=== PATIENT | female | born 1980 | race Caucasian/White ===

== ENCOUNTER 2017-10-23 21:01 | Emergency (ER) | payer OTHER ==
[~2017-10-23] VITALS: Ht 157.5 cm; Wt 59.0 kg
[~2017-10-23 21:01] MED LIST: ACCUNEB0.63 MG/3 IH; ACETAMINOPHEN-1 EAC1 PO; ATIVAN1 MG PO; BACTRIM; DEXACIDIN EYE DR5 ML OP; DOXYCYCLINE 10100 MG PO; HYDROCODONE-AP1 EAC6 PO; HYDROCODONE-APA1 TA1 PO; IBUPROFEN 600600 M1 PO; IBUPROFEN 800800 M1 PO; IBUPROFEN 800800 MG PO; KLONOPIN0.5 MG PO; MEDROLDOSEPACK PO; NAPROSYN500 MG PO; NAPROXEN 500MG500 MG PO; NORCO 5-325 TA1 EACH PO; PEPCID20 MG PO; PREDNISONE50 MG PO; PRENA1 SOFTGEL1 EACH; PRILOSEC20 MG PO; PROAIR HFA8.5 GM IH; PROAIR HFA8.5 GM INH; PROZAC10 MG PO; PROZAC20 MG; TRAMADOL 50 MG50 MG; TRAMADOL 50 MG50 MG PO; ULTRAM 50MG TAB50 MG PO; VENTOLIN HFA 1818 GM INH; VICODIN 5-5001 EACH PO; VISTARIL 25 MG25 M1 PO; ZOFRAN ODT4 MG PO; ZPAK PO
[2017-10-23 21:27] VITALS: BP 130/82
== END 2017-10-23 21:28 | disposition home or self-care (01) ==
LOC: M.ERS 21:01
DX: J11.1 Influenza due to unidentified influenza virus with other respiratory manifestations (principal); R05 Cough; R52 Pain, unspecified; M47.9 Spondylosis, unspecified; F32.9 Major depressive disorder, single episode, unspecified; Z98.51 Tubal ligation status; Z88.2 Allergy status to sulfonamides; Z88.5 Allergy status to narcotic agent; Z88.8 Allergy status to other drugs, medicaments and biological substances

== ENCOUNTER 2017-10-26 22:45 | Emergency (ER) | payer OTHER ==
[~2017-10-26] VITALS: Ht 157.5 cm; Wt 63.5 kg
[2017-10-26 23:13] LABS: ABSOLUTE BASOPHILS 0.1 thou/uL (0.0-0.2); ABSOLUTE EOSINOPHILS 0.3 thou/uL (0.0-0.7); ABSOLUTE LYMPHOCYTES 1.9 thou/uL (0.8-5.3); ABSOLUTE MONOCYTES 0.6 thou/uL (0.0-1.2); ABSOLUTE NEUTROPHILS 3.2 thou/uL (1.6-8.1); EOSINOPHILS 4.6 %; HEMATOCRIT 41.8 % (37.0-47.0); HEMOGLOBIN 13.9 gm/dL (12.0-15.0); LYMPHOCYTES 31.1 %; MCH 30.2 pg (26.0-34.0); MCHC 33.2 g/dL (28.0-37.0); MCV 90.9 fL (80.0-100.0); MONOCYTES 9.5 %; MPV 8.9 fl. (7.2-11.1); NUCLEATED RBCS 0 /100WBC; PLATELET COUNT* 299 thou/uL (150-400); POLYS 53.8 %; RDW-CV 12.9 % (10.5-14.5)
[2017-10-26 23:28] LABS: ANION GAP 5 mmol/L (7-16); BUN 7 mg/dL (7-18); CALCIUM 8.6 mg/dL (8.5-10.1); CHLORIDE 103 mmol/L (98-107); CO2 29 mmol/L (21-32); CREATININE 0.9 mg/dL (0.6-1.3); GLUCOSE 99 mg/dL (70-99); POTASSIUM 3.6 mmol/L (3.5-5.1); SODIUM 137 mmol/L (136-145)
[2017-10-26 23:39] LABS: ALBUMIN 3.6 g/dL (3.4-5.0); ALKALINE PHOSPHATASE 74 U/L (46-116); LIPASE 123 U/L (73-393); MAGNESIUM 1.8 mg/dL (1.8-2.4); NT-PRO BRAIN NAT PEPTIDE 63 pg/mL (<300); SGOT 20 U/L (15-37); SGPT 29 U/L (30-65); TOTAL BILIRUBIN 0.3 mg/dL (<0.1-1.0); TOTAL PROTEIN 7.2 g/dL (6.4-8.2); TROPONIN-I LEVEL <0.06 ng/mL (<0.06)
[2017-10-27] MEDS ORDERED: ZOFRAN ODT4 MG PO (00:24)
[2017-10-27 00:48] VITALS: BP 107/83
--- NOTE | 2017-10-27 13:24 | EKG ---
[place] [address] ELECTROCARDIOGRAM REPORT Name: KRYSTA SIMPSON Room: [facility]#: [id number] Admission: 10/26/17 Attend Phys: Discharge: 10/27/17 Date of : 80 Report #: [id number] THIS REPORT FOR: //name// [facility] ED Test Date: 2017-10-26 Test Time: 23:01:41 Pat Name: KRYSTA SIMPSON Department: Room: Gender: F Shake Splitter: IMTIAZ : 1980 Requested By: Golden Davis Order Number: [id number] MD: Will Jordan Measurements Intervals [place] Rate: 72 P: 53 MN: 117 QRS: 53 QRSD: 90 T: 44 QT: 385 QTc: 422 Interpretive Statements Sinus rhythm Borderline short [place] interval Compared to ECG 07/01/2017 16:41:38 Ventricular premature complex(es) no longer present Electronically Signed On 10-27-2017 13:24:08 GUIDEMAN by Will Jordan [email or web address] <ELECTRONICALLY SIGNED> By: Will Jordan MD, [facility] 10/27/17 1324 00 00 Will Jordan MD, FACC /EPI
== END 2017-10-27 00:50 | disposition home or self-care (01) ==
LOC: M.ERS 22:45
PROVIDERS: Emergency Medicine Emergency Medical Services
DX: J11.1 Influenza due to unidentified influenza virus with other respiratory manifestations (principal); R09.1 Pleurisy; F32.9 Major depressive disorder, single episode, unspecified; Z87.440 Personal history of urinary (tract) infections; Z88.5 Allergy status to narcotic agent; Z88.2 Allergy status to sulfonamides; Z88.8 Allergy status to other drugs, medicaments and biological substances

== ENCOUNTER 2018-09-15 16:01 | Inpatient (IN) | payer OTHER ==
[~2018-09-15] VITALS: Ht 157.5 cm; Wt 61.2 kg
[2018-09-15 16:17] VITALS: BP 119/80
[2018-09-15] MEDS ORDERED: LISINOPRIL10 MG PO (16:22)
[2018-09-15 16:30] LABS: URINE BILIRUBIN NEGATIVE (Negative); URINE BLOOD NEGATIVE (Negative); URINE CLARITY CLEAR; URINE COLOR YELLOW; URINE GLUCOSE-RANDOM NEGATIVE (Negative); URINE KETONES NEGATIVE (Negative); URINE LEUKOCYTES-REFLEX 1+ (Negative); URINE NITRITE-REFLEX NEGATIVE (Negative); URINE PROTEIN NEGATIVE (Negative); URINE UROBILINOGEN 0.2 E.U./dl (0.2-1.0)
[2018-09-15 16:35] LABS: ABSOLUTE EOSINOPHILS 0.1 thou/uL (0.0-0.7); ABSOLUTE MONOCYTES 0.4 thou/uL (0.0-1.2); ABSOLUTE NEUTROPHILS 4.9 thou/uL (1.6-8.1); BASOPHILS 0.4 %; EOSINOPHILS 0.8 %; HEMATOCRIT 40.6 % (37.0-47.0); MCH 32.1 pg (26.0-34.0); MCHC 34.4 g/dL (28.0-37.0); MCV 93.2 fL (80.0-100.0); MONOCYTES 5.8 %; MPV 9.2 fl. (7.2-11.1); NUCLEATED RBCS 0 /100WBC; PLATELET COUNT* 355 thou/uL (150-400); RBC 4.35 mil/uL (4.20-5.00); RDW-CV 12.8 % (10.5-14.5); WBC 7.5 thou/uL (4.0-11.0)
[2018-09-15 16:37] LABS: SQUAMOUS >10 Many /LPF (0-3); URINE RBC 0-2 Rare /HPF (0-2); URINE WBC-REFLEX 6-15 Few /HPF (0-5)
[2018-09-15 16:38] LABS: CRYSTALS None Seen /LPF (None Seen); HYALINE CASTS 0-3 Few /LPF (None Seen); MUCUS >6 Heavy strn/LPF (None Seen)
[2018-09-15 16:43] LABS: CALCIUM 8.6 mg/dL (8.5-10.1); POTASSIUM 3.4 mmol/L (3.5-5.1)
[2018-09-15 16:48] LABS: ALBUMIN 3.7 g/dL (3.4-5.0); TOTAL BILIRUBIN 0.9 mg/dL (<0.1-1.0); TOTAL PROTEIN 6.9 g/dL (6.4-8.2)
[2018-09-15] MEDS ORDERED: CLONAZEPAM 1 MG1 M1 PO (21:45)
[2018-09-15 21:54] VITALS: BP 121/75
[2018-09-15 21:55] VITALS: BP 118/78
[2018-09-16 08:00] VITALS: BP 111/69
[2018-09-16 12:37] VITALS: BP 111/69
[2018-09-16 18:35] VITALS: BP 103/52
--- NOTE | 2018-09-16 18:51 | NUR ---
PATIENT NPO ALL MORNING FOR PROCEDURE THIS AFTERNOON WITH UROLOGY. PATIENT HAD STONE REMOVED AND STENT PLACED. IVF REMAIN INFUSING. REG DIET, PATIENT STATED HER DAUGHTER WAS BRINGING HER FOOD. PATIENT STATED SHE WAS SORE BUT FELT MUCH BETTER AFTER PROCEDURE. PATIENT VITALS STABLE. OK TO DISCHARGE IN AM PER UROLOGY IF REMAINS AFEBRILE.
[2018-09-16 19:30] VITALS: BP 101/68
--- NOTE | 2018-09-16 22:16 | NUR ---
INITAL ASSESMENT COMPLETED AT 1930. PT RESTING IN BED WITH FAMILY AT BEDSIDE. PT REPORTED UNRELIEVED NAUSEA. CALLED DR BETHEA AND RECIEVED ORDERS. PT GIVEN IV COMPAINE WITH GOOD RESULTS. PT GIVEN PRN NORCO AND TORADOL WITH HS MEDS. PT RESTING QUIETLY IN BED AT THIS TIME. CALL LIGHT IN REACH. PT USING APPROPRIATELY.
[2018-09-17 00:30] VITALS: BP 95/50
--- NOTE | 2018-09-17 06:18 | NUR ---
PT VOIDING CLOUDY BLOOD TINGED URINE AFTER CYSTOSCOPY YESTERDAY. NO STONES STRAINED FROM URINE. PT RECIEVED IV DILAUDED AND TORADOL DURING SHIFT. PT TAKING PO ULTRAM AND NORCO FOR PAIN CONTROL. VITAL SIGNS WITHIN NORMAL LIMITS. WILL CONTINUE TO MONITOR.
[2018-09-17 08:45] VITALS: BP 106/67
[2018-09-17] MEDS ORDERED: FLOMAX0.4 MG PO (09:38)
[2018-09-17 09:39] VITALS: BP 106/67
[2018-09-17] MEDS ORDERED: CIPRO500 M1 PO (09:39)
[2018-09-17] MEDS ORDERED: HYDROCODONE-AP1 EAC6 PO (10:29)
[2018-09-17] MEDS ORDERED: ONDANSETRON HCL4 M2 PO (10:29)
--- NOTE | 2018-09-17 11:19 | NUR ---
NO COMPLAINTS OF PAIN OR NAUSEA THIS AM. TOLERATING REG DIET. IV SL, DC'D THIS AM. PATIENT STARTED ON PO ABX BY UROLOGY AND OK TO DISCHARGE. DR. BETHEA NOTIFIED AND ORDERS FOR DISCHARGE. VERBALIZES UNDERSTANDING OF PAPERWORK AND SCRIPTS. PATIENT AMBULATED OUT WITH STAFF AND ALL BELONGINGS.
--- NOTE | 2018-09-17 16:48 | OP ---
[address] [address] OPERATIVE REPORT Name: MAMIDELGADOKRYSTA WEISS Room: [address]#: [id number] Admission: 09/15/18 Attend Phys: Cindy Purvis MD Discharge: 09/17/18 Date of : [birth year] Report #: [id number] THIS REPORT FOR: //name// CC: JERRI physician/PCP Cindy Purvis DATE OF SERVICE: 09/16/2018 INDICATIONS FOR PROCEDURE: The patient is a 37-year-old female who was admitted through the Emergency Department due to right-sided flank pain associated with nausea and vomiting. She was initially treated for urinary tract infection, but second evaluation through the Emergency Department revealed a 4 mm right distal ureteral calculus. After discussing treatment options including all risks and benefits, she presents for a cystoscopy with right retrograde pyelogram, possible ureteroscopic stone extraction versus possible stent. PREOPERATIVE DIAGNOSIS: Right ureteral calculus. POSTOPERATIVE DIAGNOSIS: Right ureteral calculus. PROCEDURE: Cystoscopy, right retrograde pyelogram, right ureteroscopic stone extraction, right stent placement. SURGEON: Gee Jackson MD ANESTHESIA: General. COMPLICATIONS: None. ESTIMATED BLOOD LOSS: None. PROCEDURE IN DETAIL: The patient was consented for the above procedure. She was given broad spectrum IV antibiotics preoperatively. She was given general anesthetic, placed in dorsal lithotomy position. She had been given IV antibiotics earlier in the day. She was prepped and draped in the usual sterile fashion over the genitalia. Cystoscopy was performed with a 21-Tunisian sheath and 30 degree lens, which revealed normal urethra. No evidence of stones, ulcerations or tumors were noted within the bladder itself. The ureteral orifices were not inflamed and they were fairly patulous. A retrograde pyelogram was performed with a 5-Tunisian Pollack catheter and half-strength Omnipaque, which revealed a filling defect approximately 2 cm above the right ureteral orifice with minimal hydronephrosis above this. No purulence was noted after performing the retrograde pyelogram. Based on the size of the ureteral orifice and the size of the stone, I elected to go ahead with ureteroscopy and stone removal. This was performed by initially placing a 0.035 floppy-tipped guidewire alongside the stone up into the right renal [place] [address] OPERATIVE REPORT Name: KRYSTA SIMPSON Room: [address]#: [id number] Admission: 09/15/18 Attend Phys: Cindy Purvis MD Discharge: 09/17/18 Date of : [birth year] Report #: [id number] was then removed and the semirigid ureteroscope was used to perform ureteroscopy alongside the wire without difficulty. This was a long oblong shaped stone, but I felt like it was small enough that it could be removed ureteroscopically, so a 0 tip nitinol stone basket was used to basket the stone and it was removed from the ureter without event. Next, a 4.8 x 26 double-J stent was passed over the wire with good curl noted in the renal pelvis and in the bladder after removing the wire. This was confirmed with fluoroscopy and cystoscopy. The bladder was drained. The scope was removed. A Uro-Jet was placed per urethra for local anesthesia. She was awakened and sent to recovery room where she remained in stable condition. We will have her finish a course of antibiotics and have her stent removal in the office in 1 week. <ELECTRONICALLY SIGNED> By: Gee Jackson MD 09/17/18 1648 1721 [id number] Jackson MD /nt
[2018-09-18] MEDS ORDERED: ZOFRAN ODT4 MG SUBLING (00:15)
[2018-09-18] MEDS ORDERED: PERCOCET 5-3251 EACH PO (00:15)
[2018-09-19 09:13] LABS: STONE CA OXALATE DIHYDRATE 20 % (()); STONE CA OXALATE MONOHYDRATE 40 % (()); STONE CALCIUM PHOSPHATE 40 % (()); STONE COLOR Brown (()); STONE SIZE 6x3x3 mm (())
== END 2018-09-17 11:24 | disposition home or self-care (01) | DRG 660 ==
LOC: M.ERS 16:01 → M.TBA-ER 19:00 → M.3W 19:00
PROVIDERS: Nurse Practitioner Family; ADMIT Internal Medicine
PROC: BT1D1ZZ Fluoroscopy of Right Kidney, Ureter and Bladder using Low Osmolar Contrast (ICD-10-PCS; principal; 2018-09-16)
PROC: 0T768DZ Dilation of Right Ureter with Intraluminal Device, Via Natural or Artificial Opening Endoscopic (ICD-10-PCS; principal; 2018-09-16)
PROC: 0TC68ZZ Extirpation of Matter from Right Ureter, Via Natural or Artificial Opening Endoscopic (ICD-10-PCS; principal; 2018-09-16)
DX: N13.6 Pyonephrosis (principal); Q61.5 Medullary cystic kidney; B96.20 Unspecified Escherichia coli [E. coli] as the cause of diseases classified elsewhere; E83.59 Other disorders of calcium metabolism; N29 Other disorders of kidney and ureter in diseases classified elsewhere; F41.9 Anxiety disorder, unspecified; M19.90 Unspecified osteoarthritis, unspecified site; F32.9 Major depressive disorder, single episode, unspecified; Z87.891 Personal history of nicotine dependence; Z90.49 Acquired absence of other specified parts of digestive tract; Z79.899 Other long term (current) drug therapy; Z88.2 Allergy status to sulfonamides; Z88.5 Allergy status to narcotic agent; Z88.8 Allergy status to other drugs, medicaments and biological substances

== ENCOUNTER 2018-09-17 23:29 | Emergency (ER) | payer OTHER ==
[~2018-09-17] VITALS: Ht 157.5 cm; Wt 59.0 kg
[~2018-09-17 23:29] MED LIST changes: +CIPRO500 M1 PO; +CLONAZEPAM 1 MG1 M1 PO; +FLOMAX0.4 MG PO; +LISINOPRIL10 MG PO; +ONDANSETRON HCL4 M2 PO
[2018-09-18] MEDS ORDERED: ZOFRAN ODT4 MG SUBLING (00:15)
[2018-09-18] MEDS ORDERED: PERCOCET 5-3251 EACH PO (00:15)
[2018-09-18 00:22] VITALS: BP 116/78
== END 2018-09-18 00:22 | disposition home or self-care (01) ==
LOC: M.ERS 23:29
DX: G89.18 Other acute postprocedural pain (principal); R10.30 Lower abdominal pain, unspecified; F32.9 Major depressive disorder, single episode, unspecified; Z88.2 Allergy status to sulfonamides; Z88.6 Allergy status to analgesic agent; Z88.8 Allergy status to other drugs, medicaments and biological substances; Z90.49 Acquired absence of other specified parts of digestive tract; Z98.890 Other specified postprocedural states; Z87.440 Personal history of urinary (tract) infections

== ENCOUNTER → 2018-12-06 | Outpatient (CLI) | payer OTHER ==
[~2018-12-06] MED LIST changes: +PERCOCET 5-3251 EACH PO; +ZOFRAN ODT4 MG SUBLING
== END ==
LOC: M.CT 12-04 16:00 → M.MRI 13:30 → M.CT 15:00
DX: N20.0 Calculus of kidney (principal); M51.16 Intervertebral disc disorders with radiculopathy, lumbar region; M51.34 Other intervertebral disc degeneration, thoracic region; I70.0 Atherosclerosis of aorta

== ENCOUNTER 2018-12-21 16:17 | Emergency (ER) | payer OTHER ==
[~2018-12-21] VITALS: Ht 157.5 cm; Wt 57.1 kg
[2018-12-21 17:46] LABS: ABSOLUTE EOSINOPHILS 0.1 thou/uL (0.0-0.7); ABSOLUTE LYMPHOCYTES 1.7 thou/uL (0.8-5.3); ABSOLUTE MONOCYTES 0.5 thou/uL (0.0-1.2); BASOPHILS 0.3 %; EOSINOPHILS 0.5 %; HEMATOCRIT 40.7 % (37.0-47.0); HEMOGLOBIN 13.9 gm/dL (12.0-15.0); LYMPHOCYTES 16.6 %; MCH 31.7 pg (26.0-34.0); MCHC 34.2 g/dL (28.0-37.0); MCV 92.7 fL (80.0-100.0); MONOCYTES 4.7 %; MPV 8.7 fl. (7.2-11.1); NUCLEATED RBCS 0 /100WBC; PLATELET COUNT* 382 thou/uL (150-400); POLYS 77.9 %; RBC 4.39 mil/uL (4.20-5.00); RDW-CV 12.7 % (10.5-14.5); WBC 10.2 thou/uL (4.0-11.0)
[2018-12-21 18:07] LABS: ALBUMIN 3.8 g/dL (3.4-5.0); CALCIUM 8.8 mg/dL (8.5-10.1); CREATININE 0.8 mg/dL (0.6-1.3); POTASSIUM 3.1 mmol/L (3.5-5.1); TOTAL BILIRUBIN 0.5 mg/dL (<0.1-1.0); TOTAL PROTEIN 7.1 g/dL (6.4-8.2)
[2018-12-21 18:14] LABS: URINE BILIRUBIN NEGATIVE (Negative); URINE BLOOD NEGATIVE (Negative); URINE CLARITY CLEAR; URINE COLOR YELLOW; URINE GLUCOSE-RANDOM NEGATIVE (Negative); URINE KETONES NEGATIVE (Negative); URINE LEUKOCYTES NEGATIVE (Negative); URINE NITRITE NEGATIVE (Negative); URINE PROTEIN NEGATIVE (Negative); URINE SPECIFIC GRAVITY 1.015 (1.005-1.030); URINE UROBILINOGEN 0.2 E.U./dl (0.2-1.0)
[2018-12-21 19:10] VITALS: BP 120/76
== END 2018-12-21 19:10 | disposition home or self-care (01) ==
LOC: M.ERS 16:17
PROVIDERS: Nurse Practitioner Family
DX: O26.891 Other specified pregnancy related conditions, first trimester (principal); R10.32 Left lower quadrant pain; Z88.5 Allergy status to narcotic agent; Z88.2 Allergy status to sulfonamides; Z88.8 Allergy status to other drugs, medicaments and biological substances; F32.9 Major depressive disorder, single episode, unspecified; Z90.89 Acquired absence of other organs; Z87.442 Personal history of urinary calculi; Z3A.00 Weeks of gestation of pregnancy not specified

== ENCOUNTER 2019-04-17 03:03 | Emergency (ER) | payer OTHER ==
[~2019-04-17] VITALS: Ht 157.5 cm; Wt 55.3 kg
[2019-04-17 03:08] VITALS: BP 134/92
[2019-04-17] MEDS ORDERED: PROAIR HFA8.5 GM INH (03:43)
[2019-04-17] MEDS ORDERED: PREDNISONE50 MG PO (03:43)
[2019-04-17] MEDS ORDERED: PROMETH-CODEIN 65 ML PO (03:45)
== END 2019-04-17 03:54 | disposition home or self-care (01) ==
LOC: M.ERS 03:03
DX: J40 Bronchitis, not specified as acute or chronic (principal); F32.9 Major depressive disorder, single episode, unspecified; F17.210 Nicotine dependence, cigarettes, uncomplicated; Z88.2 Allergy status to sulfonamides; Z88.5 Allergy status to narcotic agent; Z88.8 Allergy status to other drugs, medicaments and biological substances; Z87.442 Personal history of urinary calculi; Z98.51 Tubal ligation status; Z90.49 Acquired absence of other specified parts of digestive tract; Z87.440 Personal history of urinary (tract) infections

== ENCOUNTER 2019-04-25 18:57 | Emergency (ER) | payer OTHER ==
[~2019-04-25] VITALS: Ht 157.5 cm; Wt 55.3 kg
[~2019-04-25 18:57] MED LIST changes: +PROMETH-CODEIN 65 ML PO
[2019-04-25] MEDS ORDERED: PREDNISONE 20 M20 M1 PO (19:28)
[2019-04-25] MEDS ORDERED: ULTRAM 50MG TAB50 MG PO (19:28)
[2019-04-25 19:45] VITALS: BP 122/60
--- NOTE | 2019-04-28 13:02 | EKG ---
[place] [address] ELECTROCARDIOGRAM REPORT Name: KRYSTA SIMPSON Room: [facility]#: [id number] Admission: 04/25/19 Attend Phys: Discharge: 04/25/19 Date of : 80 Report #: [id number] THIS REPORT FOR: //name// [facility] ED Test Date: 2019-04-25 Test Time: 19:09:25 Pat Name: KRYSTA SIMPSON Department: Room: Gender: F Medical Collector: [place] : 1980 Requested By: Dick Kumar Order Number: [id number] MD: Gee Camarillo Measurements Intervals [place] Rate: 79 P: 75 [place]: 123 QRS: 55 QRSD: 96 T: 38 QT: 362 QTc: 416 Interpretive Statements Sinus rhythm Probable left atrial enlargement Left ventricular hypertrophy Compared to ECG 10/26/2017 23:01:41 Left ventricular hypertrophy now present Electronically Signed On 04-28-2019 13:02:29 CDT by Gee Camarillo [email or web address] <ELECTRONICALLY SIGNED> By: Gee Camarillo MD, [facility] 04/28/19 1302 08 Gee Camarillo MD, FACC /EPI
== END 2019-04-25 19:45 | disposition home or self-care (01) ==
LOC: M.ERS 18:57
DX: R07.89 Other chest pain (principal); F32.9 Major depressive disorder, single episode, unspecified; Z88.5 Allergy status to narcotic agent; Z88.2 Allergy status to sulfonamides; Z88.8 Allergy status to other drugs, medicaments and biological substances; Z87.891 Personal history of nicotine dependence; Z90.49 Acquired absence of other specified parts of digestive tract; Z98.51 Tubal ligation status; Z87.440 Personal history of urinary (tract) infections

== ENCOUNTER 2019-08-18 18:22 | Emergency (ER) | payer OTHER ==
[~2019-08-18] VITALS: Ht 157.5 cm; Wt 55.8 kg
[~2019-08-18 18:22] MED LIST changes: +PREDNISONE 20 M20 M1 PO
[2019-08-18] MEDS ORDERED: CLONAZEPAM 0.50.5 M1 (18:34)
[2019-08-18 18:47] LABS: URINE BILIRUBIN NEGATIVE (Negative); URINE BLOOD NEGATIVE (Negative); URINE CLARITY CLEAR; URINE COLOR YELLOW; URINE GLUCOSE-RANDOM NEGATIVE (Negative); URINE KETONES TRACE (Negative); URINE LEUKOCYTES-REFLEX NEGATIVE (Negative); URINE NITRITE-REFLEX NEGATIVE (Negative); URINE PROTEIN NEGATIVE (Negative); URINE UROBILINOGEN 0.2 E.U./dl (0.2-1.0)
[2019-08-18 19:14] LABS: ABSOLUTE EOSINOPHILS 0.1 thou/uL (0.0-0.7); ABSOLUTE LYMPHOCYTES 1.9 thou/uL (0.8-5.3); ABSOLUTE MONOCYTES 0.4 thou/uL (0.0-1.2); ABSOLUTE NEUTROPHILS 5.4 thou/uL (1.6-8.1); BASOPHILS 0.5 %; EOSINOPHILS 0.7 %; HEMATOCRIT 40.5 % (37.0-47.0); HEMOGLOBIN 14.1 gm/dL (12.0-15.0); MCH 32.4 pg (26.0-34.0); MCHC 34.8 g/dL (28.0-37.0); MCV 93.1 fL (80.0-100.0); MONOCYTES 4.9 %; MPV 9.3 fl. (7.2-11.1); NUCLEATED RBCS 0 /100WBC; PLATELET COUNT* 283 thou/uL (150-400); POLYS 68.9 %; RBC 4.35 mil/uL (4.20-5.00); RDW-CV 12.6 % (10.5-14.5); WBC 7.8 thou/uL (4.0-11.0)
[2019-08-18 19:23] LABS: CALCIUM 8.8 mg/dL (8.5-10.1); POTASSIUM 3.2 mmol/L (3.5-5.1)
[2019-08-18 19:28] LABS: ALBUMIN 3.7 g/dL (3.4-5.0); TOTAL BILIRUBIN 0.9 mg/dL (<0.1-1.0); TOTAL PROTEIN 6.7 g/dL (6.4-8.2)
[2019-08-18] MEDS ORDERED: NORCO 5-325 TA1 EAC1 PO (20:37)
[2019-08-18 21:08] VITALS: BP 115/80
== END 2019-08-18 21:09 | disposition home or self-care (01) ==
LOC: M.ERS 18:22
PROVIDERS: Nurse Practitioner Family; Physician Assistant
DX: R10.12 Left upper quadrant pain (principal); F32.9 Major depressive disorder, single episode, unspecified; Z88.2 Allergy status to sulfonamides; Z88.5 Allergy status to narcotic agent; Z88.8 Allergy status to other drugs, medicaments and biological substances; Z90.49 Acquired absence of other specified parts of digestive tract; Z87.442 Personal history of urinary calculi; Z98.51 Tubal ligation status; Z87.440 Personal history of urinary (tract) infections

== ENCOUNTER 2019-09-02 15:28 | Emergency (ER) | payer OTHER ==
[~2019-09-02] VITALS: Ht 157.5 cm; Wt 54.9 kg
[~2019-09-02 15:28] MED LIST changes: +CLONAZEPAM 0.50.5 M1; +NORCO 5-325 TA1 EAC1 PO
[2019-09-02 15:56] LABS: URINE BILIRUBIN NEGATIVE (Negative); URINE BLOOD NEGATIVE (Negative); URINE CLARITY CLEAR; URINE COLOR YELLOW; URINE GLUCOSE-RANDOM NEGATIVE (Negative); URINE KETONES NEGATIVE (Negative); URINE LEUKOCYTES-REFLEX TRACE (Negative); URINE NITRITE-REFLEX NEGATIVE (Negative); URINE PROTEIN NEGATIVE (Negative); URINE SPECIFIC GRAVITY <= 1.005 (1.005-1.030); URINE UROBILINOGEN 0.2 E.U./dl (0.2-1.0)
[2019-09-02 16:09] LABS: BACTERIA-REFLEX 1-9 Few /HPF (None Seen); SQUAMOUS 0-3 Few /LPF (0-3); URINE RBC 0-2 Rare /HPF (0-2); URINE WBC-REFLEX 0-5 Rare /HPF (0-5)
[2019-09-02 16:10] LABS: AMORPHOUS PHOSPHATES Few /LPF (None Seen); CASTS None Seen /LPF (None Seen); CRYSTALS None Seen /LPF (None Seen)
[2019-09-02 16:14] LABS: ABSOLUTE EOSINOPHILS 0.1 thou/uL (0.0-0.7); ABSOLUTE LYMPHOCYTES 2.4 thou/uL (0.8-5.3); ABSOLUTE MONOCYTES 0.4 thou/uL (0.0-1.2); ABSOLUTE NEUTROPHILS 4.6 thou/uL (1.6-8.1); BASOPHILS 0.5 %; EOSINOPHILS 1.1 %; HEMATOCRIT 38.4 % (37.0-47.0); HEMOGLOBIN 13.7 gm/dL (12.0-15.0); LYMPHOCYTES 31.5 %; MCH 32.7 pg (26.0-34.0); MCHC 35.7 g/dL (28.0-37.0); MCV 91.5 fL (80.0-100.0); NUCLEATED RBCS 0 /100WBC; PLATELET COUNT* 334 thou/uL (150-400); POLYS 60.9 %; RBC 4.19 mil/uL (4.20-5.00); WBC 7.5 thou/uL (4.0-11.0)
[2019-09-02 16:27] LABS: CALCIUM 8.6 mg/dL (8.5-10.1); CREATININE 0.8 mg/dL (0.6-1.3); POTASSIUM 3.3 mmol/L (3.5-5.1)
[2019-09-02 16:32] LABS: ALBUMIN 3.7 g/dL (3.4-5.0); TOTAL BILIRUBIN 0.5 mg/dL (<0.1-1.0); TOTAL PROTEIN 6.6 g/dL (6.4-8.2)
[2019-09-02] MEDS ORDERED: TRINATE TABLET1 EACH PO (18:52)
[2019-09-02 19:08] VITALS: BP 103/71
== END 2019-09-02 19:09 | disposition home or self-care (01) ==
LOC: M.ERS 15:28
PROVIDERS: Nurse Practitioner Family
DX: O20.9 Hemorrhage in early pregnancy, unspecified (principal); F32.9 Major depressive disorder, single episode, unspecified; Z90.49 Acquired absence of other specified parts of digestive tract; Z87.442 Personal history of urinary calculi; Z88.5 Allergy status to narcotic agent; Z88.2 Allergy status to sulfonamides; Z88.8 Allergy status to other drugs, medicaments and biological substances; Z3A.01 Less than 8 weeks gestation of pregnancy

== ENCOUNTER 2019-09-19 14:50 | Emergency (ER) | payer OTHER ==
[~2019-09-19] VITALS: Ht 157.5 cm; Wt 55.3 kg
[~2019-09-19 14:50] MED LIST changes: +TRINATE TABLET1 EACH PO
[2019-09-19 15:27] LABS: URINE BILIRUBIN NEGATIVE (Negative); URINE BLOOD NEGATIVE (Negative); URINE CLARITY CLEAR; URINE COLOR YELLOW; URINE GLUCOSE-RANDOM NEGATIVE (Negative); URINE KETONES NEGATIVE (Negative); URINE LEUKOCYTES-REFLEX NEGATIVE (Negative); URINE NITRITE-REFLEX NEGATIVE (Negative); URINE PROTEIN NEGATIVE (Negative); URINE UROBILINOGEN 0.2 E.U./dl (0.2-1.0)
[2019-09-19 15:49] LABS: ABSOLUTE EOSINOPHILS 0.1 thou/uL (0.0-0.7); ABSOLUTE LYMPHOCYTES 2.1 thou/uL (0.8-5.3); ABSOLUTE MONOCYTES 0.4 thou/uL (0.0-1.2); ABSOLUTE NEUTROPHILS 5.4 thou/uL (1.6-8.1); BASOPHILS 0.4 %; EOSINOPHILS 0.7 %; HEMATOCRIT 38.9 % (37.0-47.0); HEMOGLOBIN 13.5 gm/dL (12.0-15.0); LYMPHOCYTES 26.3 %; MCH 31.9 pg (26.0-34.0); MCHC 34.9 g/dL (28.0-37.0); MCV 91.4 fL (80.0-100.0); MONOCYTES 5.3 %; MPV 8.7 fl. (7.2-11.1); NUCLEATED RBCS 0 /100WBC; PLATELET COUNT* 359 thou/uL (150-400); POLYS 67.3 %; RBC 4.25 mil/uL (4.20-5.00); RDW-CV 12.2 % (10.5-14.5); WBC 8.1 thou/uL (4.0-11.0)
[2019-09-19 15:54] LABS: CALCIUM 8.7 mg/dL (8.5-10.1); CREATININE 0.9 mg/dL (0.6-1.3); POTASSIUM 3.4 mmol/L (3.5-5.1)
[2019-09-19 15:59] LABS: ALBUMIN 3.7 g/dL (3.4-5.0); TOTAL BILIRUBIN 0.5 mg/dL (<0.1-1.0); TOTAL PROTEIN 6.7 g/dL (6.4-8.2)
[2019-09-19 17:16] VITALS: BP 108/67
== END 2019-09-19 17:16 | disposition home or self-care (01) ==
LOC: M.ERS 14:50
PROVIDERS: Physician Assistant
DX: O20.0 Threatened abortion (principal); Z3A.01 Less than 8 weeks gestation of pregnancy; Z67.40 Type O blood, Rh positive; Z88.5 Allergy status to narcotic agent; Z88.2 Allergy status to sulfonamides; Z88.8 Allergy status to other drugs, medicaments and biological substances; Z90.49 Acquired absence of other specified parts of digestive tract; Z87.442 Personal history of urinary calculi; Z87.440 Personal history of urinary (tract) infections

== ENCOUNTER 2020-08-06 17:25 | Emergency (ER) | payer OTHER ==
[~2020-08-06] VITALS: Ht 157.5 cm; Wt 58.1 kg
[2020-08-06 17:51] LABS: URINE BILIRUBIN NEGATIVE (Negative); URINE BLOOD NEGATIVE (Negative); URINE CLARITY CLEAR; URINE COLOR YELLOW; URINE GLUCOSE-RANDOM NEGATIVE (Negative); URINE KETONES NEGATIVE (Negative); URINE LEUKOCYTES-REFLEX NEGATIVE (Negative); URINE NITRITE-REFLEX NEGATIVE (Negative); URINE PROTEIN NEGATIVE (Negative); URINE UROBILINOGEN 0.2 E.U./dl (0.2-1.0)
[2020-08-06 18:12] LABS: ABSOLUTE EOSINOPHILS 0.1 thou/uL (0.0-0.7); ABSOLUTE LYMPHOCYTES 2.5 thou/uL (0.8-5.3); ABSOLUTE MONOCYTES 0.5 thou/uL (0.0-1.2); ABSOLUTE NEUTROPHILS 4.4 thou/uL (1.6-8.1); BASOPHILS 0.6 %; EOSINOPHILS 1.4 %; HEMATOCRIT 42.8 % (37.0-47.0); HEMOGLOBIN 14.6 gm/dL (12.0-15.0); LYMPHOCYTES 33.6 %; MCHC 34.1 g/dL (28.0-37.0); MCV 93.9 fL (80.0-100.0); MONOCYTES 6.6 %; MPV 8.6 fl. (7.2-11.1); NUCLEATED RBCS 0 /100WBC; PLATELET COUNT* 344 thou/uL (150-400); POLYS 57.8 %; RBC 4.56 mil/uL (4.20-5.00); RDW-CV 12.4 % (10.5-14.5); WBC 7.6 thou/uL (4.0-11.0)
[2020-08-06 18:30] LABS: CALCIUM 8.3 mg/dL (8.5-10.1); CREATININE 0.8 mg/dL (0.6-1.3); POTASSIUM 3.5 mmol/L (3.5-5.1)
[2020-08-06 18:35] LABS: ALBUMIN 3.7 g/dL (3.4-5.0); TOTAL BILIRUBIN 0.5 mg/dL (<0.1-1.0); TOTAL PROTEIN 7.4 g/dL (6.4-8.2)
[2020-08-06] MEDS ORDERED: NORCO 5-325 TA1 EAC2 PO (19:52)
[2020-08-06 20:10] VITALS: BP 135/86
== END 2020-08-06 20:10 | disposition home or self-care (01) ==
LOC: M.ERS 17:25
PROVIDERS: Physician Assistant
DX: R10.31 Right lower quadrant pain (principal); R10.11 Right upper quadrant pain; Z88.5 Allergy status to narcotic agent; Z88.2 Allergy status to sulfonamides; Z88.8 Allergy status to other drugs, medicaments and biological substances; Z90.49 Acquired absence of other specified parts of digestive tract; Z98.51 Tubal ligation status; Z87.442 Personal history of urinary calculi; Z87.440 Personal history of urinary (tract) infections

== ENCOUNTER 2020-12-15 11:09 | Emergency (ER) | payer OTHER ==
[~2020-12-15] VITALS: Ht 157.5 cm; Wt 59.0 kg
[~2020-12-15 11:09] MED LIST changes: +NORCO 5-325 TA1 EAC2 PO
[2020-12-15] MEDS ORDERED: AUGMENTIN400 MG/53 PO (11:21)
[2020-12-15 11:40] LABS: ABSOLUTE EOSINOPHILS 0.2 thou/uL (0.0-0.7); ABSOLUTE LYMPHOCYTES 1.7 thou/uL (0.8-5.3); ABSOLUTE MONOCYTES 0.7 thou/uL (0.0-1.2); ABSOLUTE NEUTROPHILS 5.9 thou/uL (1.6-8.1); BASOPHILS 0.5 %; EOSINOPHILS 2.2 %; HEMATOCRIT 42.8 % (37.0-47.0); HEMOGLOBIN 14.7 gm/dL (12.0-15.0); MCHC 34.2 g/dL (28.0-37.0); MCV 93.5 fL (80.0-100.0); MONOCYTES 8.1 %; MPV 8.8 fl. (7.2-11.1); NUCLEATED RBCS 0 /100WBC; PLATELET COUNT* 308 thou/uL (150-400); POLYS 69.2 %; RBC 4.58 mil/uL (4.20-5.00); RDW-CV 12.9 % (10.5-14.5); WBC 8.6 thou/uL (4.0-11.0)
[2020-12-15 12:03] LABS: CALCIUM 9.5 mg/dL (8.5-10.1); POTASSIUM 3.8 mmol/L (3.5-5.1)
[2020-12-15 12:08] LABS: ALBUMIN 3.7 g/dL (3.4-5.0); TOTAL BILIRUBIN 0.5 mg/dL (<0.1-1.0); TOTAL PROTEIN 7.4 g/dL (6.4-8.2)
[2020-12-15 12:13] LABS: URINE BILIRUBIN NEGATIVE (Negative); URINE BLOOD NEGATIVE (Negative); URINE CLARITY CLEAR; URINE COLOR YELLOW; URINE GLUCOSE-RANDOM NEGATIVE (Negative); URINE KETONES NEGATIVE (Negative); URINE LEUKOCYTES-REFLEX NEGATIVE (Negative); URINE NITRITE-REFLEX NEGATIVE (Negative); URINE PROTEIN NEGATIVE (Negative); URINE SPECIFIC GRAVITY 1.015 (1.005-1.030); URINE UROBILINOGEN 0.2 E.U./dl (0.2-1.0)
[2020-12-15] MEDS ORDERED: PROAIR HFA8.5 GM INH ×2 (13:14→13:18)
[2020-12-15] MEDS ORDERED: PREDNISONE 20 M20 MG PO ×2 (13:14→13:18)
[2020-12-15] MEDS ORDERED: TESSALON PERLE100 MG PO ×2 (13:14→13:18)
[2020-12-15 13:38] VITALS: BP 105/51
== END 2020-12-15 13:39 | disposition home or self-care (01) ==
LOC: M.ERS 11:09
PROVIDERS: Nurse Practitioner
DX: J06.9 Acute upper respiratory infection, unspecified (principal); Z20.822 Contact with and (suspected) exposure to COVID-19; M25.511 Pain in right shoulder; M19.90 Unspecified osteoarthritis, unspecified site; F32.9 Major depressive disorder, single episode, unspecified; Z90.49 Acquired absence of other specified parts of digestive tract; Z98.51 Tubal ligation status; Z87.442 Personal history of urinary calculi; Z79.2 Long term (current) use of antibiotics; Z88.2 Allergy status to sulfonamides; Z88.8 Allergy status to other drugs, medicaments and biological substances